=== PATIENT | female | born 1990 | race Caucasian/White ===

== ENCOUNTER 2016-12-09 06:08 | Observation (INO) | payer OTHER, BC ==
[~2016-12-09] VITALS: Ht 165.1 cm; Wt 79.0 kg
[~2016-12-09 06:08] MED LIST: AMOX500T PO
[2016-12-09] MEDS ORDERED: METOPROLOL TARTRATE 25 MG TAB PO PRN (06:45)
[2016-12-09] MEDS ORDERED: INSULIN HUMAN REGULAR 1,000 UNITS/10 ML VIAL SQ PRN (06:45)
[2016-12-09] MEDS ORDERED: SODIUM CHLORID 0.9% 500 ML IV SCH (06:45)
[2016-12-09] MEDS ORDERED: LACTATED RINGER'S 1000 ML IV SCH (06:45)
[2016-12-09 06:54] VITALS: BP 94/65; PULSE 86; RESP 16; TEMP 98.2; O2SAT 98
[2016-12-09] MEDS ORDERED: ceFAZolin 2 GM PREMIX 50 ML ONE (06:54)
[2016-12-09] MEDS ORDERED: ceFAZolin 2 GM PREMIX 50 ML IV SCH (07:00)
[2016-12-09] MEDS ORDERED: LIDOCAINE 1%/EPINEPHrine 1:100,000 SOLN 20 ML VIAL ONE (07:11)
[2016-12-09] MEDS ORDERED: EPINEPHrine HCL (1:1000) 1 MG/ML VIAL ONE (08:23)
[2016-12-09 08:31] LABS: BETA HCG QUANT LESS THAN 1 MIU/ML (0-5)
[2016-12-09] MEDS ORDERED: DEXAMETHASONE SOD PHOS 4 MG/ML VIAL ONE (08:50)
[2016-12-09] MEDS ORDERED: MIDAZOLAM HCL 2 MG/2 ML VIAL ONE (08:50)
[2016-12-09] MEDS ORDERED: ceFAZolin INJ 1,000 MG VIAL IV ONE (11:00)
[2016-12-09] MEDS ORDERED: ONDANSETRON HCL 4 MG/2 ML VIAL IV PUSH ONE (12:00)
[2016-12-09] MEDS ORDERED: NEOSTIGMINE 3 MG/3 ML SYR IV ONE (12:00)
[2016-12-09] MEDS ORDERED: ACETAMINOPHEN 1000 MG/100 ML VIAL IV ONE (12:00)
[2016-12-09] MEDS ORDERED: LACTATED RINGER'S 1000 ML INJ 1,000 ML IV ONE (12:00)
[2016-12-09] MEDS ORDERED: PROPOFOL 200 MG/20 ML AMP IV ONE (12:00)
[2016-12-09] MEDS ORDERED: PROMETHAZINE HCL 25 MG TAB PO PRN (13:00)
[2016-12-09] MEDS ORDERED: fentaNYL CITRATE 250 MCG/5 ML AMP ONE (13:13)
[2016-12-09] MEDS ORDERED: *morphine SULFATE 8 MG/ML PERIprocedure ONLY ONE ×2 (13:16→13:27)
[2016-12-09] MEDS: HYDROmorphone HCL PF 1 MG/ML VIAL IV PUSH PRN ×2 (14:20→20:54)
[2016-12-09 18:00] VITALS: BP 119/80; PULSE 88; RESP 18; TEMP 97.2; O2SAT 96
[2016-12-09] MEDS: oxyCODONE/ACETAMINOPHEN 7.5 MG/325 MG TAB PO PRN (18:30)
[2016-12-09 20:21] VITALS: BP_SYST 107; BP_SYST 130; BP_DIAS 68; BP_DIAS 70; PULSE 79; PULSE 98; RESP 18; RESP 21; TEMP 96.3; TEMP 98; O2SAT 95; O2SAT 97
[2016-12-09 21:03] VITALS: O2SAT 97
[2016-12-10 00:11] VITALS: BP 110/60; PULSE 72; RESP 16; TEMP 96.9; O2SAT 97
[2016-12-10] MEDS: oxyCODONE/ACETAMINOPHEN 7.5 MG/325 MG TAB PO PRN ×3 (01:14→10:50)
[2016-12-10] MEDS: HYDROmorphone HCL PF 1 MG/ML VIAL IV PUSH PRN (02:57)
[2016-12-10 08:00] VITALS: BP 99/58; PULSE 81; RESP 17; TEMP 98.1; O2SAT 99
[2016-12-10 12:00] VITALS: BP 113/62; PULSE 87; RESP 17; TEMP 98; O2SAT 100
[2016-12-10] MEDS ORDERED: ACETAMINOPHEN/HYDROcodone 325 MG/7.5 MG TAB PO ONE (13:00)
--- NOTE | 2016-12-10 16:29 | PD.PLAS.PN ---
Subjective Remarks Patient seen in morning approx 7 30 am. Doing well postop Pain moderate to mild, No active bleeding FRANKIE contents clearing already Breast soft No change in size. No hematoma Can take shower today - remove all dressings, replace afte shower. Will see her post op at [facility] on Friday OK to discharge. Vital Signs Date Time Temp Pulse Resp B/P Pulse Ox O2 Delivery O2 Flow Rate FiO2 12/10/16 12:00 98.0 87 17 113/62 100 12/10/16 08:00 98.1 81 17 99/58 99 12/10/16 00:11 96.9 72 16 110/60 97 12/09/16 21:24 16 12/09/16 21:03 97 21 12/09/16 20:21 98.0 79 18 107/68 97 12/09/16 19:30 16 12/09/16 18:00 97.2 88 18 119/80 96 12/09/16 17:30 97.8 89 16 128/75 99 Room Air 12/09/16 16:30 74 15 106/67 96 Room Air I/O 12/09/16 12/09/16 12/09/16 12/10/16 12/10/16 12/10/16 07:00 15:00 23:00 07:00 15:00 23:00 Intake Total 1800 ml 200 ml 480 ml Output Total 300 ml 45 ml 20 ml Balance 1500 ml 155 ml 460 ml Intake Oral 480 ml IV Total 200 ml 200 ml Other 1600 ml Output Urine Total 200 ml Drainage Total 45 ml 20 ml Estimated Blood Loss 100 ml # Voids 2 2 Fab Alcala MD Dec 10, 2016 16:29
--- NOTE | 2016-12-11 22:37 | MP ---
cc: SHENA ALCALA DATE OF SURGERY 12/09/2016 PREOPERATIVE DIAGNOSIS Bilateral macromastia with mild asymmetry POSTOPERATIVE DIAGNOSIS Bilateral macromastia with mild asymmetry OPERATION Bilateral reduction mammoplasty SURGEON Dr. Lamar Alcala ANESTHESIA General INDICATIONS This is a 26-year-old white female who has bilaterally large breasts desiring elective reduction. She has undergone detailed explanation of the procedure. Pros, cons, risks and complications including possibility of damage to the breast flaps and remaining breast tissue needing further surgical care, possible asymmetry and future glandular ptosis, etc., needing revisions. She is willing to go ahead with the surgery. She is a nurse and understands the medical issues well. PROCEDURE IN DETAIL The patient was brought to the operating room, was given supine position. Anesthesia was started. Prep and drape was done. IV antibiotic had been given. Time-out was called and completed. The preoperative markings were reinforced. Nipple-areolar markings were done and the inferior pedicles were de-epithelialized making the lateral pedicle all the way to the end of the triangular markings. The upper flaps were developed. The breast tissue was reduced in the lateral upper portion. Hemostasis was completed. The lateral dermal edge was elevated to just inside at the axillary line and was tacked to the anterior axillary line vertically to define the lateral border of the new breast mound. Flaps were brought to the center, sutured in two layers. The nipple-areolar complexes were exteriorized at symmetrical position 7 cm from the T-junction. The Vicryl and Prolene sutures were used for the skin. Two #7 Tong-Brian drains were used. The patient was given sterile dressing. The drains were activated. Total reduction on the right side 485+ 25 grams, on the left side 520 +25 grams. The estimated blood loss less than 50 mL total. No complications. signed, not fully reviewed MD FILIBERTO Gray/ /12:19 PM /10:29 PM TULIO
== END 2016-12-10 14:38 | disposition home or self-care (01) ==
LOC: HSDC 06:08 → N07A 12:15
PROVIDERS: ADMIT Plastic Surgery; ATTEND Plastic Surgery
DX: N62 Hypertrophy of breast (principal)
CPT/HCPCS: 00402; 19318; 84702; 88305; G0378; J0131; J0171; J0690; J1100; J1170; J2250; J2270; J2405; J2710; J3010; J7120; 88307